=== PATIENT | male | born 1990 | race Caucasian/White ===

== ENCOUNTER 2023-09-20 10:38 | Emergency (ER) | payer MEDICAID ==
[~2023-09-20] VITALS: Ht 172.7 cm; Wt 68.2 kg
[2023-09-20 10:43] VITALS: BP 121/82; PULSE 81; RESP 18; TEMP 98.2; O2SAT 99
[2023-09-20] MEDS ORDERED: PERM60CR19 TOP (11:34)
== END 2023-09-20 11:42 | disposition home or self-care (01) ==
LOC: ER 10:39
DX: S80.862A Insect bite (nonvenomous), left lower leg, initial encounter (principal); S80.861A Insect bite (nonvenomous), right lower leg, initial encounter; W57.XXXA Bitten or stung by nonvenomous insect and other nonvenomous arthropods, initial encounter; Y93.89 Activity, other specified; Y92.89 Other specified places as the place of occurrence of the external cause; Y99.8 Other external cause status
CPT/HCPCS: 99283

== ENCOUNTER 2023-09-29 11:17 | Emergency (ER) | payer MEDICAID ==
[~2023-09-29] VITALS: Ht 172.7 cm; Wt 70.0 kg
[~2023-09-29 11:17] MED LIST: PERM60CR19 TOP
[2023-09-29 11:24] VITALS: BP 150/79; PULSE 56; RESP 16; TEMP 98; O2SAT 94
[2023-09-29] MEDS ORDERED: CEPH-585 PO (12:24)
[2023-09-29] MEDS ORDERED: PRED10TA23 PO (12:24)
[2023-09-29] MEDS ORDERED: SULF1TAB49 PO (12:24)
== END 2023-09-29 12:41 | disposition home or self-care (01) ==
LOC: ER 11:17
DX: S20.469A Insect bite (nonvenomous) of unspecified back wall of thorax, initial encounter (principal); L03.119 Cellulitis of unspecified part of limb; W57.XXXA Bitten or stung by nonvenomous insect and other nonvenomous arthropods, initial encounter; Y93.89 Activity, other specified; Y92.89 Other specified places as the place of occurrence of the external cause; Y99.8 Other external cause status
CPT/HCPCS: 99283

== ENCOUNTER 2023-10-07 14:34 | Emergency (ER) | payer MEDICAID ==
[~2023-10-07] VITALS: Ht 172.7 cm; Wt 16.0 kg
[~2023-10-07 14:34] MED LIST changes: +CEPH-585 PO; +SULF1TAB49 PO
[2023-10-07 16:15] LABS: BILIRUBIN,URINE NEGATIVE (Neg); CLARITY,URINE CLEAR (Clear); COLOR,URINE YELLOW (Yellow); GLUCOSE, URINE NEGATIVE (Neg); KETONES,URINE NEGATIVE (Neg); LEUKOCYTE ESTERASE ,URINE NEGATIVE (Neg); NITRITES, URINE NEGATIVE (Neg); OCCULT BLOOD,URINE NEGATIVE (Neg); PROTEIN,URINE NEGATIVE (Neg); UROBILINOGEN,URINE 0.2 E.U/dL (0.2-1.0)
[2023-10-07 16:28] LABS: UA COLLECTION TYPE CLN CATCH MIDSTREAM; URINE AMPHETAMINE SCREEN NEGATIVE (Neg); URINE BARBITUATE SCREEN NEGATIVE (Neg); URINE BENZODIAZEPINES SCREEN NEGATIVE (Neg); URINE CANNABINOID SCREEN NEGATIVE (Neg); URINE COCAINE SCREEN NEGATIVE (Neg); URINE METHADONE SCREEN NEGATIVE (Neg); URINE OPIATE SCREEN NEGATIVE (Neg); URINE PHENCYCLIDINE SCREEN NEGATIVE (Neg)
[2023-10-07 16:58] VITALS: BP 126/72; PULSE 80; RESP 18; TEMP 97.2; O2SAT 96
== END 2023-10-07 17:21 | disposition home or self-care (01) ==
LOC: ER 14:35
DX: F15.90 Other stimulant use, unspecified, uncomplicated (principal); Z02.83 Encounter for blood-alcohol and blood-drug test; Z79.2 Long term (current) use of antibiotics; Z79.899 Other long term (current) drug therapy
CPT/HCPCS: 80305; 81003; 99283

== ENCOUNTER 2024-01-19 10:07 | Emergency (ER) | payer MEDICAID ==
[~2024-01-19] VITALS: Ht 170.2 cm; Wt 75.0 kg
[2024-01-19 10:15] VITALS: TEMP 98.6
[2024-01-19 11:01] LABS: BASOPHILS # (AUTO) 0.1 X10'3 (0-0.2); BASOPHILS % (AUTO) 0.4 % (0-1); EOSINOPHILS % (AUTO) 0.2 % (0-6); HEMATOCRIT 44.9 % (42.0-52.0); LYMPHOCYTES # (AUTO) 0.5 X10'3 (1.1-4.8); LYMPHOCYTES % (AUTO) 3.3 % (21-51); MEAN CORPUSCULAR HEMOGLOBIN 30.1 PG (27.0-31.0); MEAN CORPUSCULAR HGB CONC 33.3 g/dL (33.0-36.5); MEAN CORPUSCULAR VOLUME 90.2 FL (78-98); MEAN PLATELET VOLUME 9.8 FL (7.4-10.4); MONOCYTES # (AUTO) 0.8 X10'3 (0-0.9); MONOCYTES % (AUTO) 5.3 % (2-12); NEUTROPHILS # (AUTO) 13.5 X10'3 (1.8-7.7); NEUTROPHILS % (AUTO) 90.8 % (42-75); PLATELET COUNT 194 X10'3 (140-440); RED BLOOD COUNT 4.98 X10'6 (4.70-6.10); RED CELL DISTRIBUTION WIDTH 12.2 % (11.5-14.5); WHITE BLOOD COUNT 14.9 X10'3 (4.5-11.0)
[2024-01-19 11:08] LABS: CHLORIDE 105 MMOL/L (99-107); POTASSIUM 4.4 MMOL/L (3.5-5.1); SODIUM 141 MMOL/L (135-145)
[2024-01-19 11:31] LABS: ALBUMIN 4.3 G/DL (3.4-5.0); ANION GAP 9 (8-16); BLOOD UREA NITROGEN 14 MG/DL (7-18); BUN/CREATININE RATIO 13.3 (10.0-20.0); CALCIUM 8.1 MG/DL (8.5-10.1); CREATININE 1.05 MG/DL (0.60-1.10); GLUCOSE 107 MG/DL (70-104); MAGNESIUM 1.9 MG/DL (1.5-2.4); PRO BRAIN NATRIURETIC PEPTIDE < 30 PG/ML (0-125); TOTAL CARBON DIOXIDE 26.6 MMOL/L (24-32); eCRCL 92 ML/MIN; eGFR 80 ML/MIN
[2024-01-19] MEDS ORDERED: ONDA4TAB12 PO (12:52)
[2024-01-19 13:56] VITALS: BP 101/61; PULSE 83; RESP 14; O2SAT 100
== END 2024-01-19 14:00 | disposition home or self-care (01) ==
LOC: ER 10:08
DX: R55 Syncope and collapse (principal); R51.9 Headache, unspecified; Z79.899 Other long term (current) drug therapy
CPT/HCPCS: 36415; 71045; 80048; 83735; 83880; 84484; 85025; 93005; 99285

== ENCOUNTER 2024-02-08 15:59 | Emergency (ER) | payer MEDICAID ==
[~2024-02-08] VITALS: Ht 172.7 cm; Wt 71.0 kg
[~2024-02-08 15:59] MED LIST changes: -CEPH-585 PO; +ONDA4TAB12 PO; -PERM60CR19 TOP; -SULF1TAB49 PO
[2024-02-08 16:10] VITALS: BP 137/77; PULSE 77; TEMP 98.2; O2SAT 98
[2024-02-08 16:47] LABS: BASOPHILS % (AUTO) 0.3 % (0-1); EOSINOPHILS % (AUTO) 0 % (0-6); HEMATOCRIT 45.2 % (42.0-52.0); HEMOGLOBIN 15.1 g/dl (14.0-17.9); LYMPHOCYTES # (AUTO) 0.5 X10'3 (1.1-4.8); LYMPHOCYTES % (AUTO) 3.6 % (21-51); MEAN CORPUSCULAR HEMOGLOBIN 30.3 PG (27.0-31.0); MEAN CORPUSCULAR HGB CONC 33.4 g/dL (33.0-36.5); MEAN CORPUSCULAR VOLUME 90.9 FL (78-98); MEAN PLATELET VOLUME 10.9 FL (7.4-10.4); MONOCYTES # (AUTO) 0.1 X10'3 (0-0.9); MONOCYTES % (AUTO) 1.1 % (2-12); NEUTROPHILS # (AUTO) 12.3 X10'3 (1.8-7.7); PLATELET COUNT 208 X10'3 (140-440); RED BLOOD COUNT 4.97 X10'6 (4.70-6.10); RED CELL DISTRIBUTION WIDTH 12.2 % (11.5-14.5); WHITE BLOOD COUNT 12.9 X10'3 (4.5-11.0)
[2024-02-08 17:04] LABS: ALANINE AMINOTRANSFERASE 12 U/L (12-78); ALBUMIN 4.7 G/DL (3.4-5.0); ALBUMIN/GLOBULIN RATIO 1.2 (1.1-1.5); ALKALINE PHOSPHATASE 81 IU/L (46-116); ANION GAP 8 (8-16); ASPARTATE AMINO TRANSFERASE 19 U/L (10-37); BILIRUBIN,TOTAL 0.9 MG/DL (0.1-1.0); BLOOD UREA NITROGEN 11 MG/DL (7-18); BUN/CREATININE RATIO 9.4 (10.0-20.0); CALCIUM 9.5 MG/DL (8.5-10.1); CHLORIDE 103 MMOL/L (99-107); CREATININE 1.17 MG/DL (0.60-1.10); GLUCOSE 112 MG/DL (70-104); POTASSIUM 4.3 MMOL/L (3.5-5.1); SODIUM 139 MMOL/L (135-145); TOTAL CARBON DIOXIDE 27.6 MMOL/L (24-32); TOTAL PROTEIN 8.6 G/DL (6.4-8.2); eCRCL 85 ML/MIN; eGFR 71 ML/MIN
[2024-02-08 17:15] LABS: PRO BRAIN NATRIURETIC PEPTIDE < 30 PG/ML (0-125)
[2024-02-08] MEDS ORDERED: ketorolac trometh inj. 60 MG/2 ML VIAL IM ONE (17:15)
[2024-02-08 18:04] VITALS: RESP 16
[2024-02-08] MEDS: ketorolac trometh. 30mg/ml inj. IM ONE (18:04)
[2024-02-08 18:07] LABS: D-DIMER < 0.19 MG/L FEU (0-0.50)
[2024-02-08] MEDS ORDERED: IBUP-1985 PO (18:36)
[2024-02-08] MEDS ORDERED: METH-798 PO (18:36)
== END 2024-02-08 18:56 | disposition home or self-care (01) ==
LOC: ER 16:00
DX: R07.89 Other chest pain (principal); F17.200 Nicotine dependence, unspecified, uncomplicated; Z79.899 Other long term (current) drug therapy
CPT/HCPCS: 36415; 71045; 80053; 83880; 84484; 85025; 85379; 93005; 96372; 99285; J1885

== ENCOUNTER 2024-02-20 10:56 | Emergency (ER) | payer MEDICAID ==
[~2024-02-20] VITALS: Ht 170.2 cm; Wt 72.0 kg
[~2024-02-20 10:56] MED LIST changes: +IBUP-1985 PO; +METH-798 PO
[2024-02-20 11:06] VITALS: BP 130/88; PULSE 75; RESP 16; TEMP 98.3; O2SAT 98
== END 2024-02-20 13:47 | disposition home or self-care (01) ==
LOC: ER 10:56
DX: L30.9 Dermatitis, unspecified (principal); Z79.899 Other long term (current) drug therapy; Z79.1 Long term (current) use of non-steroidal anti-inflammatories (NSAID); Z88.6 Allergy status to analgesic agent
CPT/HCPCS: 99282

== ENCOUNTER 2024-02-21 10:09 | Outpatient (CLI) | payer MEDICAID | END 2024-02-21 23:59 | disposition home or self-care (01) | LOC: RAD 10:09 | PROVIDERS: ATTEND Family Medicine | DX: I08.3 Combined rheumatic disorders of mitral, aortic and tricuspid valves (principal); R00.1 Bradycardia, unspecified; R55 Syncope and collapse | CPT/HCPCS: 93005; 93306 ==

== ENCOUNTER 2024-03-13 07:30 | Day surgery (SDC) | payer MEDICAID ==
[2024-03-10 15:36] LABS: BASOPHILS % (AUTO) 0.5 % (0-1); EOSINOPHILS # (AUTO) 0.2 X10'3 (0-0.9); EOSINOPHILS % (AUTO) 1.8 % (0-6); LYMPHOCYTES % (AUTO) 11.8 % (21-51); MEAN CORPUSCULAR HEMOGLOBIN 30.5 PG (27.0-31.0); MEAN CORPUSCULAR HGB CONC 33.8 g/dL (33.0-36.5); MEAN CORPUSCULAR VOLUME 90.1 FL (78-98); MEAN PLATELET VOLUME 10.2 FL (7.4-10.4); MONOCYTES # (AUTO) 0.7 X10'3 (0-0.9); MONOCYTES % (AUTO) 8.3 % (2-12); NEUTROPHILS # (AUTO) 6.6 X10'3 (1.8-7.7); NEUTROPHILS % (AUTO) 77.6 % (42-75); PRE OP HEMATOCRIT 43.4 % (42.0-52.0); PRE OP HEMOGLOBIN 14.7 g/dL (14.0-17.9); PRE OP PLATELET COUNT 190 X10'3 (140-440); PRE OP WHITE BLOOD COUNT 8.5 10'3 (4.8-10.8); RED BLOOD COUNT 4.81 X10'6 (4.70-6.10); RED CELL DISTRIBUTION WIDTH 12.2 % (11.5-14.5)
[2024-03-10 15:45] LABS: ALBUMIN 4.6 G/DL (3.4-5.0); ALBUMIN/GLOBULIN RATIO 1.3 (1.1-1.5); ALKALINE PHOSPHATASE 75 IU/L (46-116); BLOOD UREA NITROGEN 8 MG/DL (7-18); BUN/CREATININE RATIO 7.4 (10.0-20.0); CALCIUM 9.1 MG/DL (8.5-10.1); CHLORIDE 102 MMOL/L (99-107); CREATININE 1.08 MG/DL (0.60-1.10); PRE OP ALT 19 U/L (30-65); PRE OP ANION GAP 9 (8-16); PRE OP AST 28 U/L (10-37); PRE OP BILIRUB, TOTAL 0.8 MG/DL (0.0-1.0); PRE OP GLUCOSE 97 MG/DL (70-104); PRE OP POTASSIUM 4.1 MMOL/L (3.4-5.1); PRE OP SODIUM 139 MMOL/L (135-145); TOTAL CARBON DIOXIDE 28.2 MMOL/L (24-32); TOTAL PROTEIN 8.2 G/DL (6.4-8.2); eGFR 78 ML/MIN
[2024-03-13] VITALS (17 sets, daily range): BP systolic 98–123; BP diastolic 53–81; PULSE 43–73; RESP 8–18; TEMP 98.2; O2SAT 96–100
[~2024-03-13] VITALS: Ht 172.7 cm; Wt 68.1 kg
[2024-03-13] MEDS: cefazolin 2gm/D5W 100mL 100 ML IV ONE (05:30)
[~2024-03-13 07:30] MED LIST changes: -IBUP-1985 PO; -METH-798 PO; -ONDA4TAB12 PO; +PREG100C56 PO
[2024-03-13] MEDS: ringers solution, lacted 1,000 ML IV SCH (09:11)
[2024-03-13] MEDS: famotidine 20mg tablet PO ONE (09:11)
[2024-03-13] MEDS ORDERED: BUPIVAcaine/PF 2.5mg/ml (0.25%) 10ml vial ONE (10:00)
[2024-03-13] MEDS ORDERED: morphine 4 MG/ML inj SYRINge IV PRN (10:35)
[2024-03-13] MEDS ORDERED: hydrALAZINE 20mg/ml inj. IV PRN (10:35)
[2024-03-13] MEDS ORDERED: ringers solution, lacted 1,000 ML IV SCH (10:35)
[2024-03-13] MEDS ORDERED: proCHLORperazine 10 MG/2 ml inj IV PRN (10:35)
[2024-03-13] MEDS ORDERED: morphine 2 MG/ML inj. syringe IV PRN (10:35)
[2024-03-13] MEDS ORDERED: meperidine/PF 25mg/ml syringe IV PRN ×2 (10:35)
[2024-03-13] MEDS ORDERED: labetalol 20mg/4ml (5mg/ml) syringe IV PRN (10:35)
[2024-03-13] MEDS ORDERED: sevoflurane 250ml liquid IH ONE (11:37)
[2024-03-13] MEDS ORDERED: midazolam 1 mg/ML 2ml injection ONE (11:42)
[2024-03-13] MEDS ORDERED: fentaNYL /PF 50mcg/ml 5ml ampule ONE (11:51)
[2024-03-13] MEDS ORDERED: propofol inj 20 ML IV ONE (11:52)
[2024-03-13] MEDS ORDERED: LIDOcaine 2% (20mg/ml) 5ml vial ONE (11:52)
[2024-03-13] MEDS ORDERED: ondansetron/PF 4mg/2ml inj ONE (11:52)
[2024-03-13] MEDS ORDERED: dexamethasone sod phosphate 4mg/ml inj. ONE (11:52)
[2024-03-13] MEDS: BUPIVAcaine/PF 2.5mg/ml (0.25%) 10ml vial ONE (12:23)
[2024-03-13] MEDS: meperidine/PF 25mg/ml syringe IV PRN (13:57)
[2024-03-13] MEDS: acetaminophen 1,000mg/100ml IV 100 ML IV ONE (13:58)
[2024-03-13] MEDS: ondansetron/PF 4mg/2ml inj IV PRN (14:22)
[2024-03-13] MEDS: ketorolac trometh. 30mg/ml inj. IV ONE (14:38)
== END 2024-03-13 15:47 | disposition home or self-care (01) ==
LOC: PAS 07:30
PROVIDERS: ATTEND Orthopaedic Surgery Hand Surgery
DX: T84.84XA Pain due to internal orthopedic prosthetic devices, implants and grafts, initial encounter (principal); Z87.891 Personal history of nicotine dependence; Z79.891 Long term (current) use of opiate analgesic; Z79.899 Other long term (current) drug therapy; Y79.2 Prosthetic and other implants, materials and accessory orthopedic devices associated with adverse incidents; Y92.89 Other specified places as the place of occurrence of the external cause
CPT/HCPCS: 20680; 36415; 80053; 82948; 85025; A6222; J0131; J0690; J1100; J1885; J2175; J2250; J2405; J2704; J3010; J3490; J7030; J7120; Z7506; Z7508; Z7512; A4215; A4565; A4618; A6446; A6449; A7000

== ENCOUNTER 2024-09-12 16:24 | Emergency (ER) | payer MEDICAID ==
[~2024-09-12] VITALS: Ht 170.2 cm; Wt 78.2 kg
[2024-09-12] MEDS ORDERED: AMOX500C2 PO (16:49)
[2024-09-12 17:09] VITALS: BP 126/70; PULSE 88; RESP 16; TEMP 97.9; O2SAT 8
== END 2024-09-12 17:11 | disposition home or self-care (01) ==
LOC: ER 16:24
DX: K04.7 Periapical abscess without sinus (principal); Z79.899 Other long term (current) drug therapy
CPT/HCPCS: 99283

== ENCOUNTER 2024-11-08 09:46 | Emergency (ER) | payer MEDICAID ==
[~2024-11-08] VITALS: Ht 170.2 cm; Wt 77.3 kg
[2024-11-08 09:47] VITALS: BP 134/73; PULSE 87; RESP 16; TEMP 98.5; O2SAT 99
[2024-11-08] MEDS ORDERED: CLIN-97 PO (11:24)
== END 2024-11-08 11:37 | disposition home or self-care (01) ==
LOC: ER 09:47
DX: K04.7 Periapical abscess without sinus (principal); Z79.899 Other long term (current) drug therapy
CPT/HCPCS: 99283

== ENCOUNTER 2025-01-14 22:00 | Emergency (ER) | payer MEDICAID ==
[~2025-01-14] VITALS: Ht 170.2 cm; Wt 31.4 kg
[~2025-01-14 22:00] MED LIST changes: +CLIN-97 PO
[2025-01-14 22:54] LABS: BASOPHILS # (AUTO) 0.1 X10'3 (0-0.2); BASOPHILS % (AUTO) 0.8 % (0-1); EOSINOPHILS % (AUTO) 0.2 % (0-6); HEMATOCRIT 41.4 % (42.0-52.0); HEMOGLOBIN 13.8 g/dl (14.0-17.9); LYMPHOCYTES % (AUTO) 8.4 % (21-51); MEAN CORPUSCULAR HEMOGLOBIN 29.5 PG (27.0-31.0); MEAN CORPUSCULAR HGB CONC 33.4 g/dL (33.0-36.5); MEAN CORPUSCULAR VOLUME 88.4 FL (78-98); MEAN PLATELET VOLUME 9.9 FL (7.4-10.4); MONOCYTES # (AUTO) 0.8 X10'3 (0-0.9); MONOCYTES % (AUTO) 7.3 % (2-12); NEUTROPHILS # (AUTO) 9.6 X10'3 (1.8-7.7); NEUTROPHILS % (AUTO) 83.3 % (42-75); PLATELET COUNT 200 X10'3 (140-440); RED BLOOD COUNT 4.68 X10'6 (4.70-6.10); RED CELL DISTRIBUTION WIDTH 13.8 % (11.5-14.5); WHITE BLOOD COUNT 11.5 X10'3 (4.5-11.0)
[2025-01-14 22:57] LABS: BILIRUBIN,URINE SMALL (Neg); CLARITY,URINE CLEAR (Clear); COLOR,URINE YELLOW (Yellow); GLUCOSE, URINE NEGATIVE (Neg); KETONES,URINE 15 mg/dl (Neg); LEUKOCYTE ESTERASE ,URINE NEGATIVE (Neg); NITRITES, URINE NEGATIVE (Neg); OCCULT BLOOD,URINE NEGATIVE (Neg); PH,URINE 5.5 (4.8-8.0); PROTEIN,URINE 30 mg/dl (Neg); UROBILINOGEN,URINE 0.2 E.U/dL (0.2-1.0)
[2025-01-14 23:05] LABS: UA COLLECTION TYPE CLN CATCH MIDSTREAM
[2025-01-14 23:06] LABS: BACTERIA,URINE NONE SEEN /HPF (Neg); RBC,URINE NONE SEEN /HPF (0-2); SQUAMOUS EPITHELIAL CELL,UR NONE SEEN /LPF (FEW); WBC,URINE NONE SEEN /HPF (0-4)
[2025-01-14 23:23] LABS: URINE AMPHETAMINE SCREEN POSITIVE (Neg); URINE BARBITUATE SCREEN NEGATIVE (Neg); URINE BENZODIAZEPINES SCREEN NEGATIVE (Neg); URINE CANNABINOID SCREEN NEGATIVE (Neg); URINE COCAINE SCREEN NEGATIVE (Neg); URINE METHADONE SCREEN NEGATIVE (Neg); URINE OPIATE SCREEN NEGATIVE (Neg); URINE PHENCYCLIDINE SCREEN NEGATIVE (Neg)
[2025-01-14 23:36] LABS: ALANINE AMINOTRANSFERASE 26 U/L (12-78); ALBUMIN 4.9 G/DL (3.4-5.0); ALBUMIN/GLOBULIN RATIO 1.3 (1.1-1.5); ALKALINE PHOSPHATASE 82 IU/L (46-116); ANION GAP 15 (8-16); ASPARTATE AMINO TRANSFERASE 36 U/L (10-37); BILIRUBIN,TOTAL 1.2 MG/DL (0.1-1.0); BLOOD UREA NITROGEN 28 MG/DL (7-18); BUN/CREATININE RATIO 24.3 (10.0-20.0); CALCIUM 9.1 MG/DL (8.5-10.1); CHLORIDE 104 MMOL/L (99-107); CREATINE KINASE 511 U/L (39-308); CREATININE 1.15 MG/DL (0.60-1.10); GLUCOSE 91 MG/DL (70-104); POTASSIUM 4.2 MMOL/L (3.5-5.1); PRO BRAIN NATRIURETIC PEPTIDE 35 PG/ML (0-125); SODIUM 143 MMOL/L (135-145); THYROID STIMULATING HORMONE 0.64 ulU/ml (0.34-4.50); TOTAL CARBON DIOXIDE 24.2 MMOL/L (24-32); TOTAL PROTEIN 8.6 G/DL (6.4-8.2); eCRCL 39 ML/MIN; eGFR 72 ML/MIN
[2025-01-14 23:46] LABS: ETHANOL < 10 MG/DL (<10)
[2025-01-15] MEDS: normal saline 1000ml 1,000 ML IV ONE ×2 (00:04)
[2025-01-15 01:35] VITALS: BP 141/93; PULSE 94; RESP 18; O2SAT 98
== END 2025-01-15 01:38 | disposition home or self-care (01) ==
LOC: ER 22:01
DX: R40.4 Transient alteration of awareness (principal); E86.0 Dehydration; F15.129 Other stimulant abuse with intoxication, unspecified; M62.82 Rhabdomyolysis
CPT/HCPCS: 36415; 71045; 80053; 80305; 80320; 81001; 82550; 83880; 84443; 84484; 85025; 93005; 96360; 99285; J7030

== ENCOUNTER 2025-03-27 20:19 | Emergency (ER) | payer MEDICAID ==
[~2025-03-27] VITALS: Ht 170.2 cm; Wt 59.0 kg
[2025-03-27] MEDS ORDERED: TRIA15CR61 TOP (22:55)
--- NOTE | 2025-03-27 22:55 | Physician Documentation ---
History of Present Illness ~ Chief Complaint: Rash Stated Complaint: MEDICATION REQUEST Time Seen by MD: 22:31 Primary Medical Doctor: NONE HPI This 34-year-old male presents for sporadic welts to his abdomen, patient reports he believes that his room in his transitional housing facility may have bedbugs as he has seen them previously. Patient reports no other acute symptoms or concerns. Medication Reconciliation Allergies: Coded Allergies: No Known Allergies (Unverified , 01/14/25) Scheduled Clindamycin HCL* (Clindamycin HCL*), 1 CAP PO Q6H Pregabalin (Pregabalin), 100 MG PO BID, (Reported) Triamcinolone Acetonide 0.5% Crm* (Kenalog 0.5% Crm*), 1 APPLIC TOP Q12H Past Medical History Past Medical History: No Pertinent History Review of Systems ROS Pruritic welts as stated above in the HPI, otherwise all systems are reviewed and negative. Physical Exam Vital Signs: Temperature: 98.2, Source: Temporal, Heart Rate: 65, Respiratory Rate: 16, BP: 124/70, Pulse Oximetry: 99, Weight: 59.000 Oxygen Flow Rate: 0 Physical Exam VITALS: Reviewed and as above. GENERAL: Alert, nontoxic appearing, no apparent distress. RESPIRATORY: No increased work of breathing, no respiratory distress, speaking in full clear sentences SKIN: Raised erythematous papules to lower abdomen Progress Results/Orders Results/Orders Completed Orders - KANWAL MULLER [employer] Diphenhydramine Capsule (Benadryl Capsul (03/27/25 22:55) Medications Received in ER Medications (Trade) Dose Ordered Sig/Lesli Route PRN Reason Start Time Stop Time Status Last Admin Dose Admin (Benadryl capsule) 50 mg ONCE ONCE PO 03/27/25 22:55 03/27/25 22:56 DC 03/27/25 22:56 50 MG Vital Signs 03/27/25 03/27/25 20:27 23:05 Temp 98.2 98.6 Pulse 65 66 Resp 16 16 B/P (MAP) 124/70 123/73 Pulse Ox 99 99 O2 Flow Rate 0 Medical Decision Making Findings This 34-year-old male presented with painful and pruritic welts to his abdomen, physical exam was consistent with insect bites, given patient's report of bedbugs at his place of residence this is consistent with bedbug bites. Patient is otherwise well-appearing and had benign physical exam. There is no evidence of rapidly progressing symptoms, crepitus, pain out of proportion, pain away from site or other signs/symptoms concerning for necrotizing fasciitis or myositis. No mucosal involvement, blisters or bullae, sloughing skin, or appearance concerning for SJS, TEN, SSSS, pemphigus vulgaris, or bullous pemphigoid. No airway compromise, angioedema or systemic signs/symptoms concerning for anaphylaxis. Patient provided home care instructions for treatment of his bedding for bedbugs and provided prescription for steroid cream for pruritus. Patient given strict return precautions including rapidly progressing symptoms, pain out of proportion/severe pain, mucosal involvement, and/or fever>100.4. Differential Dx:Considerations: Include: Abscess, Atopic dermatitis, Contact dermatitis, Drug reaction, Erysipelas, Herpes zoster, Pediculosis, Viral exanthema Departure Disposition: 01 HOME / SELF CARE / HOMELESS Impression: Primary Impression: Insect bites Qualified Codes: S30.861A - Insect bite (nonvenomous) of abdominal wall, initial encounter; W57.XXXA - Bitten or stung by nonvenomous insect and other nonvenomous arthropods, initial encounter Condition: Improved Discharge Instructions: Bedbugs, Xhks-rh-Tyle Additional Instructions: Please follow the attached instructions for treating your room for bedbugs, use the prescribed cream on the bites. Please follow up with your primary care provider in the next few days. Please return to the emergency department for any new or worsening concerning symptoms. Referrals: NO PRIMARY CARE PROVIDER (PCP) Prescriptions Triamcinolone Acetonide 0.5% Crm* (Kenalog 0.5% Crm*) 15 Gm Tube 1 APPLIC TOP Q12H for 30 Days, #15 GM apply to affected area(s) Prov: KANWAL MULLER 03/27/25 Education Educated: Patient Educated regarding: diagnosis, treatment, prognosis, need for follow up Signature Scribe Signature: No scribe Attestation: The note accurately reflects work and decisions made by me.COLEMAN Fulton 03/28/25 02:06 KAWNAL MULLER Mar 27, 2025 22:55
[2025-03-27] MEDS: diphenhydrAMINE 25mg capsule PO ONE (22:56)
[2025-03-27 23:05] VITALS: BP 123/73; PULSE 66; RESP 16; TEMP 98.6; O2SAT 99
== END 2025-03-27 23:06 | disposition home or self-care (01) ==
LOC: ER 20:20
DX: S30.861A Insect bite (nonvenomous) of abdominal wall, initial encounter (principal); W57.XXXA Bitten or stung by nonvenomous insect and other nonvenomous arthropods, initial encounter; Y93.89 Activity, other specified; Y92.89 Other specified places as the place of occurrence of the external cause; Y99.8 Other external cause status
CPT/HCPCS: 99283; Q0163

== ENCOUNTER 2025-05-27 11:15 | Emergency (ER) | payer MEDICAID ==
[~2025-05-27] VITALS: Ht 170.2 cm; Wt 69.7 kg
[~2025-05-27 11:15] MED LIST changes: +CLIN-224 PO; -CLIN-97 PO; +DICY10CA88 PO
[2025-05-27] MEDS ORDERED: ERYT1OIN6 LEFTEYE (13:57)
--- NOTE | 2025-05-27 13:57 | Physician Documentation ---
History of Present Illness ~ Chief Complaint: Eye Pain Stated Complaint: EYE PAIN Time Seen by MD: 12:49 OK to notify your PCP?: Yes Primary Medical Doctor: NONE Source: patient Mode of Arrival: POV Exam Limitations: no limitations HPI 34-year-old male presents with stye to left upper eyelid for the past 2 days. He states it has not opened up and tried to draining. He states it is extremely painful though but not itchy. He has not put any medications on this yet. He has no visual changes. Medication Reconciliation Allergies: Coded Allergies: No Known Allergies (Unverified , 01/14/25) Scheduled Clindamycin HCL* (Clindamycin HCL*), 1 CAP PO Q6H Dicyclomine Hcl* (Bentyl*), 1 CAP PO Q8H Erythromycin Base Opth. Ointment* (Erythromycin Opth. Ointment*), 1 APPLIC LEFTEYE Q4HWA Pregabalin (Pregabalin), 100 MG PO BID, (Reported) Past Medical History Past Medical History: No Pertinent History Past Surgical History: noncontributory Smoking Status: Current some day smoker Alcohol Use: None Drug Use: none Review of Systems All Other Systems at this time: Reviewed and Negative Physical Exam Vital Signs: RN Vital Signs have been reviewed: Yes, Temperature: 99.6, Source: Oral, Heart Rate: 67, Respiratory Rate: 18, BP: 114/71, Pulse Oximetry: 99, Weight: 69.700 Pulse Oximetry Reflects: adequate oxygenation Physical Exam General: Alert, no distress. HEENT: No injection, moist mucous membranes. PERRLA, EOMI, erythematous stye to left upper eyelid. No crusting or drainage from the eye. Neck: Full range of motion. No cervical lymphadenopathy. Respiratory: No respiratory distress, equal chest rise and fall. Chest: No accessory muscle use. Cardiovascular: Regular rate and rhythm. Gastrointestinal: Nondistended. Extremities: Normal range of motion, no deformity. Neurologic: Oriented x4. Psychiatric: Normal mood and affect. Skin: Normal color, warm and dry. Progress Results/Orders Reviewed/noted all lab results: Yes Results/Orders Completed Orders - STEPHANIE CHO [employer]ISH[employer] Erythromycin Ophth Ointment (Ilotycin Op (05/27/25 13:55) Vital Signs 05/27/25 11:37 Temp 99.6 Pulse 67 Resp 18 B/P (MAP) 114/71 Pulse Ox 99 Medical Decision Making Additional info obtained from: old records Findings 34-year-old male with a stye to his left upper eyelid which is painful. He has no drainage or crusting from the eye the eye itself has no injection of the conjunctiva and the sclera is white. He does not have any other eye symptoms or upper respiratory symptoms. 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 I gave him return instructions as well as follow up instructions. Eye Diff. Dx: Considerations: Include: [place], Conjuctivits-allergic, Conjuctivitis-bacterial, Conjuctivits-chlamydial, Conjuctivitis-viral, Corneal ulceration, Foreign body-lid Departure Disposition: 01 HOME / SELF CARE / HOMELESS Impression: Primary Impression: Sty, external Condition: Stable Discharge Instructions: Sty Additional Instructions: As discussed, please do warm compresses for 15 minutes each time multiple times per day. You can use Tylenol or ibuprofen for pain relief. Apply the ointment as directed. Return back here for any new or worsening symptoms. Follow up with her primary care provider within the next week if this does not improve. Referrals: NO PRIMARY CARE PROVIDER (PCP) Prescriptions Erythromycin Base Opth. Ointment* (Erythromycin Opth. Ointment*) 1 Gm Tube 1 APPLIC LEFTEYE Q4HWA for 5 Days, #1 EACH Prov: STEPHANIE CHO 05/27/25 Education Educated: Patient Educated regarding: diagnosis, treatment, prognosis, need for follow up Additional Comment Medical Screen Exam This patient recieved a medical screening examination. After reviewing the individual's medical complaints with presenting symptoms and performing an appropriate physical examination, it was determined that no immediate life- threatening emergency medical condition is present. This individual is also not a women having contractions. Signature Scribe Signature: . Attestation: Scribed for Stephanie Cho by Stephanie Gomez NP . 05/27/25 14:00 Parts of this note were created using [employer] voice recognition software program. While efforts were made to correct any mistakes made by this voice recognition software program, nonsensical phrases may remain in this note. In addition, there may be errors and syntax, grammar, content and spelling. [facility] May 27, 2025 13:57
[2025-05-27] MEDS: erythromycin ophthalmic ointment 1gm tube LEFTEYE ONE (13:58)
[2025-05-27 14:04] VITALS: BP 117/61; PULSE 65; RESP 15; TEMP 99.1; O2SAT 99
== END 2025-05-27 14:06 | disposition home or self-care (01) ==
LOC: ER 11:16
DX: H00.014 Hordeolum externum left upper eyelid (principal); F17.200 Nicotine dependence, unspecified, uncomplicated
CPT/HCPCS: 99283

== ENCOUNTER 2025-06-19 20:49 | Emergency (ER) | payer MEDICAID ==
[~2025-06-19] VITALS: Ht 170.2 cm; Wt 72.8 kg
[~2025-06-19 20:49] MED LIST changes: -DICY10CA88 PO
[2025-06-19 20:56] VITALS: TEMP 97.7
[2025-06-19 21:18] LABS: MEAN PLATELET VOLUME 9.6 FL (7.4-10.4); RED CELL DISTRIBUTION WIDTH 12.5 % (11.5-14.5)
[2025-06-19 21:36] LABS: CREATININE 1.02 MG/DL (0.60-1.10); TOTAL CARBON DIOXIDE 27.2 MMOL/L (24-32); eCRCL 94 ML/MIN; eGFR 83 ML/MIN
--- NOTE | 2025-06-19 23:24 | Physician Documentation ---
History of Present Illness ~ Chief Complaint: Abdominal Pain Stated Complaint: ABD PAIN Time Seen by MD: 23:21 Primary Medical Doctor: NONE HPI Patient presents to the emergency room with intermittent abdominal pain. Patient states that it happened one month ago and was given constipation medications and it seemed to help. These symptoms started after he got off of work today intermittent sharp cramping pain that comes and goes proximally every 5 minutes. He reports no history of dysuria or known constipation. Medication Reconciliation Allergies: Coded Allergies: No Known Allergies (Unverified , 01/14/25) Scheduled Clindamycin HCL* (Clindamycin HCL*), 1 CAP PO Q6H Pregabalin (Pregabalin), 100 MG PO BID, (Reported) Past Medical History Past Medical History: No Pertinent History Past Surgical History: noncontributory Alcohol Use: None Drug Use: none Review of Systems ROS All review of systems negative except as per HPI Physical Exam Vital Signs: Temperature: 97.7, Source: Temporal, Heart Rate: 60, Respiratory Rate: 16, BP: 120/82, Pulse Oximetry: 98, Weight: 72.840 Oxygen Flow Rate: 0 Physical Exam General: Patient is awake, alert, oriented x4 in no acute distress and well appearing.~ Head: Normocephalic and atraumatic. Eyes: Conjunctival normal. EOMI. PERRL. ENT: Mucous membranes moist. Neck: Supple, trachea is midline. Chest: Clear to auscultation bilaterally without rales, rhonchi, or wheezes. There is no accessory muscle use or retractions. Cardiac: RRR without murmurs, gallops, or rubs. Abd: Soft, nondistended, nontender, with normoactive bowel sounds. No guarding, rebound, or rigidity. Progress Results/Orders Results/Orders Orders - ALEKSANDR ASENCIO MD Urinalysis, Cult If Indicated (06/19/25 20:55) Lactulose Oral Solution (Cephulac Oral S (06/20/25 01:05) Completed Orders - ALEKSANDR ASENCIO MD Cbc/Diff (06/19/25 20:55) BMP (06/19/25 20:55) Lipase (06/19/25 20:55) CMP (06/19/25 20:55) Vital Signs 06/19/25 06/19/25 06/19/25 20:56 23:36 23:40 Temp 97.7 Pulse 60 56 Resp 16 16 B/P (MAP) 120/82 122/74 (90) Pulse Ox 98 100 O2 Flow Rate 0 0 Laboratory Tests Test 06/19/25 21:05 White Blood Count 7.1 Red Blood Count 4.58 L Hemoglobin 13.7 L Hematocrit 39.9 L Mean Corpuscular Volume 87.1 Mean Corpuscular Hemoglobin 29.9 Mean Corpuscular Hemoglobin Concent 34.3 Red Cell Distribution Width 12.5 Platelet Count 180 Mean Platelet Volume 9.6 Neutrophils (%) (Auto) 61.1 Lymphocytes (%) (Auto) 27.2 Monocytes (%) (Auto) 7.8 Eosinophils (%) (Auto) 2.8 Basophils (%) (Auto) 1.1 H Neutrophils # (Auto) 4.3 Lymphocytes # (Auto) 1.9 Monocytes # (Auto) 0.6 Eosinophils # (Auto) 0.2 Basophils # (Auto) 0.1 CBC Comment Sodium Level 141 Potassium Level 4.3 Chloride Level 106 Carbon Dioxide Level 27.2 Anion Gap 8 Blood Urea Nitrogen 19 H Creatinine 1.02 Estimated GFR/1.73 m2 83 BUN/Creatinine Ratio 18.6 Glucose Level 90 Calcium Level 8.8 Total Bilirubin 0.4 Aspartate Amino Transf (AST/SGOT) 24 Alanine Aminotransferase (ALT/SGPT) 22 Alkaline Phosphatase 86 Total Protein 7.4 Albumin 4.1 Globulin 3.3 Albumin/Globulin Ratio 1.2 Lipase 51 Chemistry Comments Medical Decision Making Findings Patient presented to the emergency room with abdominal pain. Differentials include but are not limited to constipation, small-bowel obstruction, cholecystitis appendicitis pancreatitis diverticulitis kidney stone therefore emergent labs ordered which were reassuring. Symptoms consistent with constipation we will treat him as such. Departure Disposition: HOME / SELF CARE / HOMELESS Impression: Primary Impression: Constipation Condition: Stable Discharge Instructions: Constipation, Adult, [id number] Referrals: NO PRIMARY CARE PROVIDER (PCP) Prescriptions Polyethylene Glycol 3350* (Miralax*) 1 Packet Packet 1 PKT PO DAILY for constipation, #30 PKT dissolve in water Prov: ALEKSANDR ASENCIO MD 06/20/25 Bisacodyl (Dulcolax) 5 Mg Tablet.dr 4 TAB PO ONCE for constipation for 1 Day, #4 TAB 0 Refills Prov: ALEKSANDR ASENCIO MD 06/20/25 Education Educated: Patient Educated regarding: diagnosis, treatment, need for follow up Signature Scribe Signature: No scribe Attestation: The note accurately reflects work and decisions made by me.Aleksandr Asencio MD 06/20/25 01:09 ALEKSANDR ASENCIO MD Jun 19, 2025 23:24
[2025-06-20] MEDS ORDERED: POLY17PO10 PO (01:08)
[2025-06-20] MEDS ORDERED: BISA-78 PO (01:08)
[2025-06-20] MEDS: lactulose 20gm/30ml cup PO ONE (01:31)
[2025-06-20 01:36] VITALS: BP 99/63; PULSE 56; RESP 16; O2SAT 98
[2025-06-20 01:48] LABS: LEUKOCYTE ESTERASE ,URINE NEGATIVE (Neg); NITRITES, URINE NEGATIVE (Neg); OCCULT BLOOD,URINE NEGATIVE (Neg)
[2025-06-20 01:49] LABS: UA COLLECTION TYPE VOIDED
== END 2025-06-20 01:38 | disposition home or self-care (01) ==
LOC: ER 20:49
DX: K59.00 Constipation, unspecified (principal)
CPT/HCPCS: 36415; 80053; 81003; 83690; 85025; 99283

== ENCOUNTER 2025-06-22 08:35 | Emergency (ER) | payer MEDICAID ==
[~2025-06-22] VITALS: Ht 170.2 cm; Wt 72.7 kg
[~2025-06-22 08:35] MED LIST changes: +BISA-78 PO; +POLY17PO10 PO
--- NOTE | 2025-06-22 08:43 | Physician Documentation ---
History of Present Illness ~ General Chief Complaint: See Chief Complaint Stated Complaint: DOC NOTE Time Seen by MD: 08:38 Primary Medical Doctor: NONE Source: patient Mode of Arrival: POV Exam Limitations: no limitations History of Present Illness Initial Comments Otherwise healthy male in to be cleared to go back to work tomorrow. Needs a work note. Was seen here recently for abdominal pain and it turns out he was having constipation. States that he feels back to normal and is ready for work. Medication Reconciliation Allergies: Coded Allergies: No Known Allergies (Unverified , 01/14/25) Scheduled Bisacodyl (Dulcolax), 4 TAB PO ONCE Clindamycin HCL* (Clindamycin HCL*), 1 CAP PO Q6H Polyethylene Glycol 3350* (Miralax*), 1 PKT PO DAILY Pregabalin (Pregabalin), 100 MG PO BID, (Reported) Past Medical History Past Medical History: No Pertinent History Past Surgical History: noncontributory Alcohol Use: None Drug Use: none Review of Systems All Other Systems at this time: Reviewed and Negative Physical Exam Physical Exam Vital Signs: Temperature: 97.5, Source: Temporal, Heart Rate: 55, Respiratory Rate: 15, BP: 114/69, Pulse Oximetry: 99, Weight: 72.730 General Appearance: alert Head: normal inspection Face: normal inspection Neck: full range of motion Respiratory: no respiratory distress Chest: no accessory muscle use Extremities: normal range of motion Neurologic: oriented x4 Motor / Sensory: no motor deficit, no sensory deficit Psychiatric: normal mood/affect Skin: normal color, warm/dry Progress Results/Orders Results/Orders Vital Signs 06/22/25 08:36 Temp 97.5 Pulse 55 Resp 15 B/P (MAP) 114/69 Pulse Ox 99 Medical Decision Making Differential Diagnosis Patient with unremarkable exam and well-appearing. Medically cleared to go back to work tomorrow. He is to follow up with his doctor if any concerns. Return here if new or worsening. Departure Disposition: 01 HOME / SELF CARE / HOMELESS Impression: Primary Impression: General medical exam Condition: Stable Additional Instructions: Follow up with your doctor if new or worsening symptoms. Referrals: NO PRIMARY CARE PROVIDER (PCP) Education Educated: Patient Educated regarding: need for follow up Signature Scribe Signature: No scribe used Attestation: No scribe used JORDYN CAZARES MD Jun 22, 2025 08:43
[2025-06-22 08:54] VITALS: BP 114/69; PULSE 55; RESP 15; TEMP 97.5; O2SAT 99
== END 2025-06-22 08:54 | disposition home or self-care (01) ==
LOC: ER 08:35
DX: Z00.00 Encounter for general adult medical examination without abnormal findings (principal); R10.9 Unspecified abdominal pain; K59.00 Constipation, unspecified; Z79.899 Other long term (current) drug therapy
CPT/HCPCS: 99281